=== PATIENT | female | born 1950 | race Hispanic/Latino ===

== ENCOUNTER → 2024-11-12 | Outpatient (CLI) | payer OTHER ==
--- NOTE | 2024-11-12 14:18 | HMCIMG ---
BONE DENSITOMETRY: HISTORY: Age-related osteoporosis without current pathological fracture Comparison: none FINDINGS: BMD measured at AP spine L1-L4 is 0.830 g/cm2 with a T-score of -2.0 Bone density is between 10 and 25% below young normal. This patient is considered osteopenic. Fracture risk is moderate. BMD measured at Left Femoral Neck is 0.535 g/cm2 with a T-score of -2.9 This patient is considered osteoporotic according to WHO criteria. Fracture risk is high. BMD measured at Left Femoral Total is 0.667 g/cm2 with a T-score of -2.1 Bone density is between 10 and 25% below young normal. This patient is considered osteopenic. Fracture risk is moderate. IMPRESSION: Osteoporosis. High risk for atraumatic fractures. Treatment and follow-up recommended.
== END | disposition home or self-care (01) ==
LOC: RAH 12:58
PROVIDERS: ATTEND Internal Medicine
DX: M81.0 Age-related osteoporosis without current pathological fracture (principal); M85.89 Other specified disorders of bone density and structure, multiple sites
CPT/HCPCS: 77080